=== PATIENT | male | born 1960 | race African-American/Black ===

== ENCOUNTER 2019-06-15 08:31 | Emergency (ER) | payer BC, MEDICAID ==
[~2019-06-15] VITALS: Ht 172.7 cm; Wt 79.0 kg
[2019-06-15 09:12] LABS: CLARITY URINE CLEAR (CLEAR); COLOR URINE YELLOW (YELLOW); KETONES URINE NEGATIVE (NEGATIVE); LEUKOCYTE ESTERASE URINE NEGATIVE (NEGATIVE); NITRITE URINE NEGATIVE (NEGATIVE); OCCULT BLOOD URINE 2+ (NEGATIVE); PH URINE 6.5 (4.5-8.0); PROTEIN URINE NEGATIVE (NEGATIVE); SPECIFIC GRAVITY URINE 1.016 (1.005-1.030); UROBILINOGEN URINE 0.2 E.U./dL (0.2-1.0)
[2019-06-15 10:31] LABS: CHLORIDE 110 mEq/L (98-107)
[2019-06-15 10:35] LABS: BASOPHILS % 0.8 % (0.0-2.0); EOSINOPHILS % 3.9 % (0.0-5.0); HEMATOCRIT. 46.3 % (42.0-52.0); HEMOGLOBIN. 15.1 g/dL (14.0-18.0); LYMPHOCYTES % 44.1 % (20.0-50.0); MEAN CORPUSCULAR HEMOGLOBIN 26.4 pg (28.0-32.0); MEAN CORPUSCULAR VOLUME 81.1 fL (80.0-94.0); MEAN PLATELET VOLUME 9.7 fl (7.4-10.4); MONOCYTES % 9.7 % (2.0-8.0); NEUTROPHILS % 41.5 % (40.0-76.0); PLATELET 199 x1000/uL (130-400); RED BLOOD CELL COUNT 5.71 mill/uL (4.7-6.1); RED CELL DISTRIBUTION WIDTH 14.4 % (11.6-14.6)
[2019-06-15 11:46] VITALS: BP 136/71
== END 2019-06-15 11:48 | disposition home or self-care (01) ==
LOC: ER 08:31
DX: R31.9 Hematuria, unspecified (principal); N40.0 Benign prostatic hyperplasia without lower urinary tract symptoms
CPT/HCPCS: 36415; 74176; 81003; 99284

== ENCOUNTER 2020-09-29 09:56 | Emergency (ER) | payer MEDICAID, OTHER ==
[~2020-09-29] VITALS: Ht 172.7 cm; Wt 79.0 kg
[2020-09-29] MEDS ORDERED: IBUPROFEN 600MG TABLET PO ONE (10:15)
[2020-09-29] MEDS ORDERED: HYDROCODONE/ACETAMINOPHEN 5/325MG TABLET PO ONE (10:45)
[2020-09-29 11:00] VITALS: BP 159/82
== END 2020-09-29 11:34 | disposition home or self-care (01) ==
LOC: ER 10:04
DX: M77.8 Other enthesopathies, not elsewhere classified (principal); M79.641 Pain in right hand; Z98.890 Other specified postprocedural states; Z88.8 Allergy status to other drugs, medicaments and biological substances
CPT/HCPCS: 73110; 93005; 99283

== ENCOUNTER 2025-07-02 04:36 | Emergency (ER) | payer SELFPAY ==
[~2025-07-02] VITALS: Ht 172.7 cm; Wt 84.0 kg
[~2025-07-02 04:36] MED LIST: AMLO5TAB88 MT; ASPI-1497 PO; BIMA2.5D4 EACHEYE; BRIM15DR8 LEFTEYE; FINA5TAB11 PO; TAMS-54 PO
[2025-07-02 04:42] VITALS: O2SAT 100
[2025-07-02 04:46] VITALS: BP 162/74; PULSE 50; RESP 16; TEMP 36.8; O2SAT 100
[2025-07-02 05:16] LABS: BASOPHILS % 0.9 % (0.0-2.0); EOSINOPHILS % 3.1 % (0.0-5.0); HEMATOCRIT. 44.5 % (42.0-52.0); HEMOGLOBIN. 14.0 g/dL (14.0-18.0); LYMPHOCYTES % 45.6 % (20.0-50.0); MEAN PLATELET VOLUME 10.0 fl (7.4-10.4); MONOCYTES % 10.4 % (2.0-8.0); NEUTROPHILS % 40.0 % (40.0-76.0); PLATELET 155 x1000/uL (130-400); RED BLOOD CELL COUNT 5.43 mill/uL (4.7-6.1); RED CELL DISTRIBUTION WIDTH 14.3 % (11.6-14.6)
[2025-07-02 05:29] LABS: CREATININE 1.3 mg/dL (0.6-1.3); UREA NITROGEN BLOOD 15 mg/dL (9-23)
[2025-07-02 05:38] LABS: CLARITY URINE CLEAR (CLEAR); COLOR URINE YELLOW (YELLOW); GLUCOSE URINE NEGATIVE (NEGATIVE); KETONES URINE NEGATIVE (NEGATIVE); LEUKOCYTE ESTERASE URINE NEGATIVE (NEGATIVE); NITRITE URINE NEGATIVE (NEGATIVE); OCCULT BLOOD URINE NEGATIVE (NEGATIVE); PH URINE 6.0 (4.5-8.0); PROTEIN URINE NEGATIVE (NEGATIVE); SPECIFIC GRAVITY URINE 1.016 (1.005-1.030); UROBILINOGEN URINE 1.0 E.U./dL (0.2-1.0)
[2025-07-02] MEDS ORDERED: PHEN-815 MT (06:40)
== END 2025-07-02 06:51 | disposition home or self-care (01) ==
LOC: ER 04:36
DX: R30.0 Dysuria (principal); N40.0 Benign prostatic hyperplasia without lower urinary tract symptoms; Z98.890 Other specified postprocedural states; Z79.899 Other long term (current) drug therapy
CPT/HCPCS: 36415; 80048; 81003; 85025; 99283